=== PATIENT | female | born 1990 | race African-American/Black ===

== ENCOUNTER 2017-09-25 17:02 | Emergency (ER) | payer BC ==
--- OUTSIDE RECORDS SUMMARY | 2017-09-25 17:05 | XMS REPORT ---
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 Allergies, Adverse Reactions, Alerts This patient has no known allergies or adverse reactions. Medications This patient has no known medications. Results Test Description Test Time Test Comments Text Results Atomic Results Result Comments TISSUE EXAM 2017-09-23 12:43:00 Surgical Pathology Report Case: [id number] Authorizing Provider: Claudio Mejia MD Collected: 09/22/2017 1017 Ordering Location: [facility] Received: 2017 1102 SERVICES Pathologist: Tereso Law MD Specimen: Gallbladder A. GALLBLADDER, CHOLECYSTECTOMY: - CHRONIC CHOLECYSTITIS WITH CHOLELITHIASIS - NEGATIVE FOR DYSPLASIA OR MALIGNANCY Signing Pathologist Direct Phone Line: [phone] signed by Tereso Law MD on 09/23/2017 at 12:43 [id number] Gallbladder Received fresh labeled "gallbladder" is a 6.3 x 2.3 x 1.3 cm, intact, distended gallbladder. The serosal surface is purple-avelar and exhibits cautery artifact on the hepatic surface. The lumen contains yellow-green to red mucoid bile and multiple irregular, yellow-gold, bosselated calculi ranging in size from 0.2 cm to 0.3 cm in greatest dimension. The mucosal surface is dark-red, velvety and glistening. The wall measures up to 0.2 cm in maximum thickness.Section code: A1 , parallel cystic duct resection margin; A2, entry level sales representative sections of gallbladder. DB/ew SCREEN, URINE 2017-09-21 15:31:00 TEST URINE (BEAKER) (test inok=270) Negative [id number] 15:26:00* Test Item Value Reference Range Comments HEMOGLOBIN (BEAKER) (test vqnv=037) 14.6 GM/DL 11.2-15.7 TISSUE [id number] 15:43:00Surgical Pathology Report Case: [id number] Authorizing Provider: Urszula Alas Ordering Provider: Urszula Alas MD Fernando, MD Ordering Location: [facility] Endoscopy Collected: 11/11/2016 1413 Services Pathologist: Tereso Law MD Received: 11/11/2016 6509 Specimens: A) - Small Bowel, NOS, Bx Small Bowel R/ O Celiac B) - Gastric, Bx Gastric Ulcer C) - Biopsy, Gastric, Bx Random Gastric R/O H. Pylori D) - Biopsy, Gastroesophageal Junction, R/O Esophagitis A. SMALL BOWEL, BIOPSY: - DUODENAL MUCOSA WITH PRESERVED VILLOUS ARCHITECTURE AND NO DIAGNOSTIC ALTERATION - NO EVIDENCE OF CELIAC DISEASE/ PARASITESB. STOMACH, ULCER, BIOPSY: - ANTRAL MUCOSA WITH FOCAL EROSION AND MUCOSAL HYPEREMIA - WARTHIN-STARRY STAIN NEGATIVE FOR HELICOBACTER PYLORI ORGANISMS - NO EVIDENCE OF INTESTINAL METAPLASIA OR DYSPLASIA OR MALIGNANCY IDENTIFIEDC. STOMACH, RANDOM, BIOPSY: - ANTRAL MUCOSA WITH REACTIVE GASTROPATHY - WARTHIN-STARRY STAIN NEGATIVE FOR HELICOBACTER PYLORI ORGANISMS - NO EVIDENCE OF INTESTINAL METAPLASIA OR DYSPLASIA OR MALIGNANCY IDENTIFIEDD. GASTROESOPHAGEAL JUNCTION, BIOPSY: - RARE INTRAEPITHELIAL EOSINOPHILS AND BASAL CELL HYPERPLASIA, SUGGESTIVE OF REFLUX ESOPHAGITIS - ADJOINING CARDIA MUCOSA WITH CHRONIC ACTIVE INFLAMMATION - NO EVIDENCE OF BARRETTS METAPLASIA/ DYSPLASIA / MALIGNANCY Signing Pathologist Direct Phone Line: [phone]. Immunostains for synaptophsyin and CD45 were attempted to study an area with crushed cells, which show non-specific staining, and is non-contributory. Multiple deeper levels were examined. There are no histologic features of ulcer.[id number], chronic gastritis without bleeding, unspecified gastric type, rule out celiac, rule out H. Pylori, rule out esohagitisA. Small bowel biopsy; B. Gastric ulcer biopsy; C. Random gastric biopsy; D. Gastroesophageal junction biopsyThe specimen is received in four containers of formalin all labeled with the patient's information.Specimen A labeled "small bowel biopsy" consists of a 0.4 cm fragment of avelar tissue, submitted A1. Specimen B labeled "gastric ulcer biopsy" consists of a 0.1 cm fragment of avelar tissue, submitted B1. Specimen C labeled "random gastric biopsy" consists of two fragments of avelar tissue, measuring 0.1 and 0.2 cm, submitted C1. Specimen D labeled "gastroesophageal junction biopsy" consists of a 0.1 cm fragment of avelar- white soft tissue, submitted D1. /plPerformed.The following special studies were performed on this case and the interpretation is incorporated in the diagnostic report above:The immunohistochemistry test was developed and its performance characteristics determined by [facility], Pathology Laboratory. It has not been cleared or approved by the U.S. Food and Drug Administration. The FDA has determined that such clearance or approval is not necessary. The test is used for clinical purposes. It should not be regarded as investigational or for research. This laboratory is certified under the Clinical Laboratory Improvement Amendments of 1988 (CLIA-88) as qualified to perform high complexity clinical laboratory testing.
--- OUTSIDE RECORDS SUMMARY | 2017-09-25 17:05 | XMS REPORT | Clinical Summary ---
Author Author [facility] Address Unknown Phone Unavailable Care Team Providers Care Industrial Engineering Technician Name Role Phone Asked, Pcp PCP Unavailable Allergies Active Allergy Reactions Severity Noted Date Comments Fentanyl 03/18/2017 Current Medications Prescription Sig. Disp. Refills Start End Date Status Date ondansetron (ZOFRAN) 4 MG Take 4 mg by mouth every Active tablet 8 (eight) hours as needed for nausea or vomiting. TIZANIDINE HCL Take by mouth. Active (TIZANIDINE ORAL) diazePAM (VALIUM) 10 MG Take 10 mg by mouth every Active tablet 6 (six) hours as needed for anxiety. nadolol (CORGARD) 40 MG Take 40 mg by mouth Active tablet daily. pantoprazole (PROTONIX) Take 40 mg by mouth Active 40 MG EC tablet daily. acetaminophen-codeine Take 1 tablet by mouth Active (TYLENOL WITH CODEINE #3) every 4 (four) hours as 300-30 mg per tablet needed for moderate pain. hyoscyamine sulfate 0.125 Take by mouth. 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 Encounters Date Type Specialty Care Team Description 03/18/2017 Office Visit Cardiovascular Alec Acosta MD Lung bullae (Primary Dx) 03/18/2017 Hospital Radiology Alec Acosta MD Bulla of lung Encounter 02/16/2017 Orders Only Cardiovascular Galina Madison Bulla of lung ( Primary Dx) after 09/24/2016 Social History Tobacco Use Types Packs/Day Years Used Date Never Smoker Sex Assigned at Date Recorded Not on file Last Filed Vital Signs Vital Sign Reading Time Taken Blood Pressure - - Pulse - - Temperature - - Respiratory Rate 14 03/18/2017 11:34 AM CDT Oxygen Saturation - - Inhaled Oxygen - - Concentration Weight 84.8 kg (187 lb) 03/18/2017 11:34 AM CDT Height 165.1 cm (5' 5") 03/18/2017 11:34 AM CDT Body Mass Index 31.12 03/18/2017 11:34 AM CDT Plan of Treatment Health Maintenance Due Date Last Done Comments CHLAMYDIA SCREENING 2008 PAP SMEAR 2013 INFLUENZA VACCINE 02/03/2017 Results * CT Chest W Contrast (03/18/2017 11:20 AM) Specimen Performing Laboratory [facility] [address] [place] [address] Narrative EXAMINATION: CT CHEST W CONTRAST CLINICAL HISTORY: J43.9 Emphysemaunspecified, left large bulla TECHNIQUE: Multiple axial images of the chest were obtained following intravenous administration of iodinated contrast. Sagittal and coronal computerized reformatted images were also obtained. CT imaging was performed with iterative reconstruction techniques and/or automated exposure control to reduce radiation dose. COMPARISON: None. IMPRESSION: 1.Moderate fatty infiltration is noted involving the partially visualized liver. 2.There is no evidence of hilar or mediastinal lymphadenopathy. 3.Multiple cysts are scattered throughout the lungs. The largest cyst is in the left lower lobe measures 7 cm in maximal diameter. No associated nodularity is appreciated. 4.No other significant parenchymal abnormality is noted in the lungs. There is no evidence of emphysema.. [facility]-[id number] Procedure Note Interface, Radiology Results Incoming - 03/18/2017 11:42 AM CDT EXAMINATION: CT CHEST W CONTRAST CLINICAL HISTORY: J43.9 Emphysema unspecified, left large bulla TECHNIQUE: Multiple axial images of the chest were obtained following intravenous administration of iodinated contrast. Sagittal and coronal computerized reformatted images were also obtained. CT imaging was performed with iterative reconstruction techniques and/or automated exposure control to reduce radiation dose. COMPARISON: None. IMPRESSION: 1. Moderate fatty infiltration is noted involving the partially visualized liver. 2. There is no evidence of hilar or mediastinal lymphadenopathy. 3. Multiple cysts are scattered throughout the lungs. The largest cyst is in the left lower lobe measures 7 cm in maximal diameter. No associated nodularity is appreciated. 4. No other significant parenchymal abnormality is noted in the lungs. There is no evidence of emphysema.. [facility]-[id number] after 09/24/2016 Insurance Payer Benefit Subscriber ID Type Phone Address Plan / Group [facility] xxxxxxxxx HMO/PPO THCARE CHOICE/CHO ICE +
[2017-09-25] MEDS ORDERED: KETOROLAC TROMETHAMINE 30 MG/ML VIAL IV STA (18:03)
[2017-09-25] MEDS ORDERED: DICYCLOMINE HCL 20 MG TAB PO ONE (18:15)
[2017-09-25] MEDS ORDERED: SODIUM CHLORIDE 0.9% 1000ML 1,000 ML IV SCH (18:15)
[2017-09-25] MEDS ORDERED: HYDROCODONE/APAP 5MG-325MG TAB PO ONE (21:00)
[2017-09-25] MEDS ORDERED: KETOROLAC TROMETHAMINE 60 MG/2 ML VIAL IM ONE (21:30)
== END 2017-09-25 22:08 | disposition home or self-care (01) ==
LOC: FSED 17:02
DX: R10.11 Right upper quadrant pain (principal); R10.13 Epigastric pain; R11.0 Nausea; R42 Dizziness and giddiness; G43.909 Migraine, unspecified, not intractable, without status migrainosus
CPT/HCPCS: 80048; 80053; 80307; 81003; 81025; 85025; 99283; J1885 ×2